=== PATIENT | female | born 1985 | race Caucasian/White ===

== ENCOUNTER 2020-11-22 13:12 | Inpatient (IN) | payer OTHER ==
[~2020-11-22] VITALS: Ht 160 cm; Wt 53.6 kg
[2020-11-22 13:38] LABS: BASOPHILS ABSOLUTE AUTO 0.04 K/mm3 (0.00-0.23); BASOPHILS PERCENT AUTO 1 % (0-2); EOSINOPHILS ABSOLUTE AUTO 0.03 K/mm3 (0.00-0.68); EOSINOPHILS PERCENT AUTO 1 % (0-6); Hematocrit 38.5 % (33.0-51.0); Hemoglobin 13.4 g/dL (11.5-16.0); IMMATURE GRAN ABSOLUTE AUTO 0.01 K/mm3 (0.00-0.10); IMMATURE GRAN PERCENT AUTO 0 % (0-1); LYMPHOCYTES ABSOLUTE AUTO 1.55 K/mm3 (0.84-5.20); LYMPHOCYTES PERCENT AUTO 27 % (21-46); MONOCYTES ABSOLUTE AUTO 0.37 K/mm3 (0.16-1.47); MONOCYTES PERCENT AUTO 6 % (4-13); Mean Corpuscular HGB 39.1 pg (26.0-34.0); Mean Corpuscular HGB Conc 34.8 g/dL (31.5-36.5); Mean Corpuscular Volume 112 fL (80-100); Mean Platelet Volume 9.5 fL (9.1-12.4); NEUTROPHILS ABSOLUTE AUTO 3.75 K/mm3 (1.96-9.15); NEUTROPHILS PERCENT AUTO 65 % (41-73); Platelet Count 174 K/mm3 (150-400); RDW Coefficient Variation 11.9 % (11.7-14.2); RDW Standard Deviation 49.7 fL (35.1-46.3); Red Blood Cell Count 3.43 M/mm3 (3.80-5.20); White Blood Cell Count 5.75 K/mm3 (4.00-11.30)
[2020-11-22 13:49] LABS: Alanine Aminotransfer (ALT/SGP 71 U/L (12-78); Albumin, Blood 3.7 g/dL (3.4-5.0); Alk Phos 157 U/L (50-136); Anion Gap 5 mmol/L (6-16); Aspartate Aminotrans (AST/SGOT 122 U/L (12-37); Bilirubin, Total 0.9 mg/dL (0.1-1.0); Blood Urea Nitrogen 12 mg/dL (8-24); Bun/Creatinine Ratio 23.8 (12.0-20.0); CO2, Blood 27 mmol/L (21-32); Calcium, Blood 10.2 mg/dL (8.5-10.1); Chloride, Blood 104 mmol/L (98-108); Creatinine, Blood 0.51 mg/dL (0.40-1.00); Globulin, Blood 3.6 g/dL (2.2-4.0); Glomerular Filtration Rate >60 (60-); Glucose, Blood 92 mg/dL (70-99); Sodium, Blood 136 mmol/L (136-145); Total Protein, Blood 7.3 g/dL (6.4-8.2)
[2020-11-22 15:05] LABS: Salicylate 4.5 mg/dL (2.8-20.0); Thyroxine (T4) 8.7 ug/dL (4.8-13.9)
[2020-11-22 15:07] LABS: Acetaminophen, Random <2.0 ug/mL (10.0-30.0)
[2020-11-22 17:16] LABS: U Amphetamine Screen Not Detected; U Barbituate Screen Not Detected; U Benzodiazapine Screen DETECTED; U Cannabinoids Screen Not Detected; U Cocaine Screen Not Detected; U Methadone Screen Not Detected; U Methamphetamine Screen Not Detected; U Opiates Screen Not Detected; U Phencyclidine Screen Not Detected
[2020-11-22 17:17] LABS: U Buprenorphine Screen Not Detected; U Oxycodone Screen Not Detected; U Propoxyphene Screen Not Detected
--- NOTE | 2020-11-22 20:00 | NUR ---
ASSUMED CARE NOTE: ASSUMED CARE OF PT AT 1950, RECEVIED REPORT FROM GONZALO ULLOA RN. PT IS ALERT AND ORIENTED ONLY TO SELF. PT IS HAVING AUDITORY AND VISUAL HALLUCINATIONS. PT IS UNABLE TO STATE PLACE, TIME. PT IS FOLLOWING COMMANDS AND IS REDIRECTABLE AT TIMES. PT IS ON RA WITH SPO2 ABOVE 90% NO RESP DISTRESS NOTED. PT IN NSR WITH HR IN THE 80'S. BP STABLE. PT DENIES ANY PAIN/NAUSEA AT THIS TIME. PT CAN BE INCONTIENT AT TIMES/USED BEDPAN. URINE JORGE IN COLOR, PT DENIES BURNING WITH URINATION, ATTENDS IN PLACE. CIWA SCORE 24, MEDICATED PER EMAR. PT DENIES ANY SI, PHYSICAN CALLED TO CLARIFY ORDER, SI ORDER DROPPED. WILL CONTINUE TO MONTIOR PT T/O SHIFT.
[2020-11-23 03:45] LABS: Alanine Aminotransfer (ALT/SGP 58 U/L (12-78); Albumin, Blood 3.5 g/dL (3.4-5.0); Alk Phos 135 U/L (50-136); Anion Gap 7 mmol/L (6-16); Aspartate Aminotrans (AST/SGOT 68 U/L (12-37); Bilirubin, Total 0.9 mg/dL (0.1-1.0); Blood Urea Nitrogen 11 mg/dL (8-24); Bun/Creatinine Ratio 25.1 (12.0-20.0); CO2, Blood 26 mmol/L (21-32); Calcium, Blood 9.2 mg/dL (8.5-10.1); Chloride, Blood 106 mmol/L (98-108); Creatinine, Blood 0.44 mg/dL (0.40-1.00); Globulin, Blood 3.5 g/dL (2.2-4.0); Glomerular Filtration Rate >60 (60-); Glucose, Blood 94 mg/dL (70-99); Potassium, Blood 3.8 mmol/L (3.5-5.5); Sodium, Blood 139 mmol/L (136-145)
--- NOTE | 2020-11-23 04:00 | NUR ---
PT IS ON PRECEDEX AT 0.7MCG/KG/HR. PT CONTINUES TO HAVE AUDITORY AND VISUAL HALLUCINATIONS. BECOMES AGITATED EASILY. WILL BEGIN TO YELL AT "PEOPLE" IN HER ROOM. BED ALARM ON PT WILL ATTEMPT TO GET OUT OF BED W/O ASSISTANCE. PT IS ON REMOTE MONITORING DUE TO HIGH FALL RISK. PT HAS EXTENSIVE BRUSING T/O BODY (DIFFERENT STAGES OF HEALING) PT REPORTS TO FALL FREQUENTLY AT HOME. PT PLACED ON BED GRANDE Q2HRS.
--- NOTE | 2020-11-23 06:09 | NUR ---
SHIFT SUMMARY: SEE PREVIOUS NOTE. PT CONTINUES TO HAVE ADUITORY AND VISUAL HALLUCINATIONS. LAST CI 15, PT MEDICATED PER EMAR. PT ALSO ON PRECEDEX AT 0.7MCG/KG/HR. PT MEDICATED WITH LIBRIUM AND ATIVAN T/O SHIFT. PT IS ABLE TO SWALLOW MEDS W/O DIFFICULTY. PT HAS BEEN IN SR WITH HR BETWEEN 80-90. BP STABLE. PT DENIES ANY NAUSEA AT THIS TIME. PT ABLE TO COMMUNICATE WHEN NEEDEDING TO URINATE, BEDPAN PROVIDED. ATTENDS IN PLACE. BED ALARM ON, PT CONTINUES TO BE ON REMOTE MONITORING DUE TO HIGH FALL RISK. WILL CONTINUE TO MONITOR PT UNTIL REPORT IS GIVEN TO ONCOMING SHIFT.
--- NOTE | 2020-11-23 08:28 | NUR ---
PT A/O TO SELF. NEEDS REMINDING THAT SHE IS IN HOSPITAL AND NOT AT [facility] ANYMORE. ONE DAY OFF ON DATE. MOOD IS LABILE. HAVING HALLUCINATIONS. GETS AGITATED BECAUSE SHE NEEDS TO GO HELP HER MOM. FREQUENTLY REORIENTING BUT PT IS PARANOID AND NOT TRUSTING OF STAFF. HAS BRUISING T/O BODY IN VARIOUS STAGES OF HEALING. HAS GREEN BRUISING TO R CHEEKBONE. PT WANTS TO GET OOB BUT KNOWS THAT SHE IS UNSTEADY ON FEET. ON PRECEDEX GTT WELL. SEE CIWA ASSESSMENT.
--- NOTE | 2020-11-23 18:22 | NUR ---
SUMMARY PT IS STILL HAVING HALLUCINATIONS AT TIMES. MOST OF THE DAY PT THOUGHT SHE WAS AT [facility] AND BECOMES ANGRY WITH STAFF WHEN TOLD SHE IS IN THE HOSPITAL. CONVERSATION IS MAKING MORE SENSE THE DAY GOES ON. HAVE BEEN GIVING ATIVAN AND LIBRIUM FOR CIWA 11-16. ALSO ON PRECEDEX GTT. GAIT IS GETTING MORE STEADY THE DAY GOES ON WELL. HAS BEEN GETTING UP TO BSC WITH ONE PERSON ASSIST. WILL SET OFF THE BED ALARM, DOES NOT USE CALL LIGHT YET. FOLLOWS COMMANDS AND IS REDIRECTABLE.
--- NOTE | 2020-11-23 19:45 | NUR ---
ASSUMED CARE NOTE: ASSUMED CARE OF PT AT 1900, RECEVIED REPORT FROM KEVIN WIN. PT IS ALERT AND ORIENTED ONLY TO SELF. PT IS CONFUSED/AGITATED, UNABLE TO BE REORIENTED. PT IS CRYING ASKING FOR HER FAMILY. CIWA 15, MEDICATED PER EMAR. PT ATTEMPTING TO GET OUT OF BED ON HER OWN, PT HAS UNSTEADY GAIT AND IS AT RISK FOR FALLS. PT CONTINUES TO BE ON BED ALARM AND REMOTE MONITORING. PT CONTINUES TO BE ON PRECEDEX DRIP AT 0.7MCG/KG/HR. PT IS IN SR WITH HR IN THE 80'S, BP STABLE. PT ON RA WITH SPO2 ABOVE 90%, NO RESP DISTRESS NOTED.
--- NOTE | 2020-11-24 02:52 | NUR ---
PT SITTING UP IN BED, ATTEMPTING TO GET UP. DENIES NEED TO USE BED SIDE COMMODE. PT AGITATED, NOT COOPERATING WITH CARE. SITTING EDGE OF BED. CALLED REGARDING PT STATUS. PRECEDEX MAY BE TITRATED TO 1.4MCG/KG/HR.
[2020-11-24 03:39] LABS: BASOPHILS ABSOLUTE AUTO 0.06 K/mm3 (0.00-0.23); BASOPHILS PERCENT AUTO 1 % (0-2); EOSINOPHILS ABSOLUTE AUTO 0.08 K/mm3 (0.00-0.68); EOSINOPHILS PERCENT AUTO 2 % (0-6); Hematocrit 41.1 % (33.0-51.0); Hemoglobin 13.9 g/dL (11.5-16.0); IMMATURE GRAN ABSOLUTE AUTO 0.02 K/mm3 (0.00-0.10); IMMATURE GRAN PERCENT AUTO 0 % (0-1); LYMPHOCYTES ABSOLUTE AUTO 2.34 K/mm3 (0.84-5.20); LYMPHOCYTES PERCENT AUTO 43 % (21-46); MONOCYTES ABSOLUTE AUTO 0.39 K/mm3 (0.16-1.47); MONOCYTES PERCENT AUTO 7 % (4-13); Mean Corpuscular HGB 38.3 pg (26.0-34.0); Mean Corpuscular HGB Conc 33.8 g/dL (31.5-36.5); Mean Corpuscular Volume 113 fL (80-100); Mean Platelet Volume 9.1 fL (9.1-12.4); NEUTROPHILS ABSOLUTE AUTO 2.55 K/mm3 (1.96-9.15); NEUTROPHILS PERCENT AUTO 47 % (41-73); Platelet Count 182 K/mm3 (150-400); RDW Standard Deviation 50.5 fL (35.1-46.3); Red Blood Cell Count 3.63 M/mm3 (3.80-5.20); White Blood Cell Count 5.44 K/mm3 (4.00-11.30)
[2020-11-24 04:03] LABS: Alanine Aminotransfer (ALT/SGP 53 U/L (12-78); Albumin, Blood 3.7 g/dL (3.4-5.0); Alk Phos 135 U/L (50-136); Anion Gap 6 mmol/L (6-16); Aspartate Aminotrans (AST/SGOT 50 U/L (12-37); Bilirubin, Total 1.1 mg/dL (0.1-1.0); Blood Urea Nitrogen 16 mg/dL (8-24); Bun/Creatinine Ratio 28.2 (12.0-20.0); CO2, Blood 26 mmol/L (21-32); Calcium, Blood 9.4 mg/dL (8.5-10.1); Chloride, Blood 106 mmol/L (98-108); Creatinine, Blood 0.57 mg/dL (0.40-1.00); Globulin, Blood 3.6 g/dL (2.2-4.0); Glomerular Filtration Rate >60 (60-); Glucose, Blood 96 mg/dL (70-99); Phosphorus, Blood 5.7 mg/dL (2.5-4.9); Sodium, Blood 138 mmol/L (136-145); Total Protein, Blood 7.3 g/dL (6.4-8.2)
--- NOTE | 2020-11-24 05:17 | NUR ---
SHIFT SUMMARY: PT CONTINUES TO HAVE A CIWA OF 15-20. SHE CONTINUES TO HAVE VISUAL AND AUDITORY HALLUCINATIONS. SHE BECOMES AGITATED EASILY. WILL CALL OUT FOR HER FAMILY. PT IS NOW ON 1.4MCG/KG/HR OF PRECEDEX, ATIVAN AND LIBRIUM GIVEN PER EMAR. PT HAS BEEN ON RA WITH SPO2 ABOVE 90%, NO RESP DISTRESS NOTED. PT IS IN NSR WITH HR IN THE 80-90'S. ORAL CARE PROVIDED NEEDED. BED ALARM ON. PT CONTINUES TO BE ON REMOTE MONITORING. WILL CONTINUE TO MONITOR PT UNTIL REPORT IS GIVEN TO ONCOMING SHIFT.
--- NOTE | 2020-11-24 10:31 | NUR ---
PT SITTING UP IN BED. ORIENTED TO SELF. PT NEEDS FREQUENT REMINDING THAT SHE IS IN THE HOSPITAL AND NOT AT [facility]. HAS BEEN TEARFUL. ON PRECEDEX GTT AND MEDICATING WITH ATIVAN AND LIBRIUM PER CIWA ORDERS. SEE CIWA ASSESSMENT. BED ALARM ARMED FOR SAFETY AND ON REMOTE MONITORING DUE TO FALL RISK. REPORTING OFF TO ROXANE WIN WHO WILL ASSUME CARE.
--- NOTE | 2020-11-24 11:12 | NUR ---
ASSUMED CARE REPORT RECEIVED FROM QUIRINO BROWN. PT STARTED GETTING UP TO EOB WITHOUT ASSISTANCE. ASSISTED HER TO COMMODE TO VOID AND THEN GAVE BEDBATH AND WASHED HER HAIR WHILE SHE WAS UP. PT TEARFUL DURING BATH, BUT DOESN'T WANT TO TALK. PT ASSISTED WITH BATH SHE WAS ABLE TO. BACK LAYING IN BED. BED ALARM ON. CONTINUE TO MONITOR.
--- NOTE | 2020-11-24 13:17 | NUR ---
REASSESSMENT PT HAS BEEN RESTLESS, GETTING UP TO THE EOB FREQUENTLY, SETTING OFF THE BED ALARM. SHE KEEPS SAYING SHE WANTS TO GO HOME TO SEE HER FAMILY. DISCUSSED WITH PT MANY TIMES THE NEED FOR HER TO STAY, THAT IT ISN'T SAFE FOR HER TO GO HOME RIGHT NOW. PT TALKED ON THE PHONE WITH HER AND HE REITERATED THE SAME TO HER. PT SOMETIMES KNOWS SHE IS IN THE HOSPITAL, OTHER TIMES IS CONFUSED. SHE HAS BEEN ASKING FOR PEOPLE THAT AREN'T HERE. SHE DENIES HALLUCINATIONS. SHE IS GETTING IRRITABLE WHEN SHE IS REORIENTED. PRECEDEX STILL INFUSING, PRN ATIVAN AND LIBRIUM BEING GIVEN. SHE IS SR, BP STABLE. ASSISTED PT WITH BATH WHILE UP TO THE COMMODE. CONTINUING TO MONITOR.
--- NOTE | 2020-11-24 13:30 | NUR ---
RESTRAINTS PT HAS BEEN IN THE CHAIR AND IS STILL TRYING TO GET UP, SAYS SHE WANTS TO GO HOME. VERY DIFFICULT TO REDIRECT. PT HAS BEEN UNSTEADY ON HER FEET REQUIRING 1-2 PEOPLE TO GET TO THE COMMODE SAFELY. TALKED WITH DR. ALLEN AND ORDER FOR VEST RESTRAINT RECEIVED. PT NOW SITTING IN CHAIR WITH VEST RESTRAINT IN PLACE.
--- NOTE | 2020-11-24 17:09 | NUR ---
SHIFT SUMMARY PT CONTINUES TO REQUIRE PRECEDEX, ATIVAN AND LIBRIUM TO KEEP HER WITHDRAWAL SYMPTOMS TO A MANAGEABLE LEVEL. BILLY VEST ADDED TODAY TO KEEP PT IN BED SHE WAS REPEATEDLY TRYING TO GET OUT OF BED. HER CIWAA HAS BEEN 15-LOW 20S. LUNGS ARE CLEAR, RA, SR, BP STABLE. SHE GETS UP TO THE COMMODE TO VOID. SHE SPOKE ON THE PHONE WITH HER MOTHER AND THIS AFTERNOON. CONTINUING TO MONITOR.
--- NOTE | 2020-11-24 19:00 | NUR ---
ASSUMED CARE NOTE: ASSUMED CARE OF PT AT 1900, RECEVIED REPORT FROM MARCI WIN. PT IS ALERT AND ORIENTED TO SELF. PT IS SITTING IN BED, YELLING AT STAFF STATING " I SHOULD BE ABLE TO LEAVE FROM YOUR HOUSE I AM GOING TO CALL THE POLICE" PT IS ALSO YELLING AT THE WALL. PT IS HAVING VISUAL AND AUDITORY HALLUCINATIONS. SHE IS UNABLE TO STATE PLACE, TIME, YEAR. PT ON PRECEDEX AT 1.4MCG/KG/HR. PT ATTEMPTING TO REMOVE BILLY, KICKING HER FEET . PT PLACED ON BILAT SWR AND BILLY VEST. PT CIWA 24, MEDICATED WITH ATIVAN PER EMAR. WILL CONTINUE TO MONITOR PT T/O SHIFT
[2020-11-25 04:23] LABS: BASOPHILS ABSOLUTE AUTO 0.06 K/mm3 (0.00-0.23); BASOPHILS PERCENT AUTO 1 % (0-2); EOSINOPHILS ABSOLUTE AUTO 0.06 K/mm3 (0.00-0.68); EOSINOPHILS PERCENT AUTO 1 % (0-6); IMMATURE GRAN ABSOLUTE AUTO 0.02 K/mm3 (0.00-0.10); IMMATURE GRAN PERCENT AUTO 0 % (0-1); LYMPHOCYTES ABSOLUTE AUTO 2.72 K/mm3 (0.84-5.20); LYMPHOCYTES PERCENT AUTO 37 % (21-46); MONOCYTES ABSOLUTE AUTO 0.55 K/mm3 (0.16-1.47); MONOCYTES PERCENT AUTO 8 % (4-13); Mean Corpuscular HGB 38.7 pg (26.0-34.0); Mean Corpuscular Volume 111 fL (80-100); Mean Platelet Volume 9.1 fL (9.1-12.4); NEUTROPHILS PERCENT AUTO 53 % (41-73); Platelet Count 188 K/mm3 (150-400); RDW Coefficient Variation 12.1 % (11.7-14.2); RDW Standard Deviation 49.6 fL (35.1-46.3); Red Blood Cell Count 3.62 M/mm3 (3.80-5.20); White Blood Cell Count 7.31 K/mm3 (4.00-11.30)
[2020-11-25 04:39] LABS: Albumin, Blood 3.9 g/dL (3.4-5.0); Anion Gap 9 mmol/L (6-16); Blood Urea Nitrogen 21 mg/dL (8-24); Bun/Creatinine Ratio 33.5 (12.0-20.0); CO2, Blood 22 mmol/L (21-32); Calcium, Blood 10.1 mg/dL (8.5-10.1); Chloride, Blood 107 mmol/L (98-108); Creatinine, Blood 0.63 mg/dL (0.40-1.00); Glomerular Filtration Rate >60 (60-); Glucose, Blood 94 mg/dL (70-99); Magnesium, Blood 1.9 mg/dL (1.6-2.4); Phosphorus, Blood 5.8 mg/dL (2.5-4.9); Sodium, Blood 138 mmol/L (136-145)
--- NOTE | 2020-11-25 11:13 | NUR ---
AM NOTE... ASSUMED CARE OF PT AT 0700. PT IS A&O TO HERSELF, SHE IS CONFUSED AT TIMES BUT REORIENTABLE AND COOPERATIVE WITH CARE SO FAR THIS SHIFT. PT'S CWIA THIS AM WAS 28, PT MEDICATED PER CWIA ORDERS. PT HAS PRECEDEX RUNNING AT 1.4MCG/KG/HR PER ORDERS. PT IS IN NSR IN THE 80'S-90'S, PT'S BP IS SOFT THIS AM WITH SBP 70'S-90'S. NO EDEMA NOTED ON ASSESSMENT. L/S CLEAR T/O ON RA. BT PRESENT AND HYPOACTIVE, ABD IS SOFT AND NONTENDER TO PALP. PT IS IN BILLY AND BILAT SOFT WRIST RESTRAINTS, THE WRIST RESTRAINTS WERE REMOVED THIS AM TO ALLOW THE PT TO EAT HER BREAKFAST. PT GOT UP TO THE BSC WITH 2P ASSIST AND WAS ABLE TO VOID, PT'S URINE WAS DARK AND VERY CONCENTRATED. DR. ALLEN CALLED AND NOTIFIED OF THE SOFT BPs AND CONCENTRATED URINE, AN ORDER FOR A 500MLS FLUID BOLUS AND NS AT 125MLS/HR TO FOLLOW WERE OBTAINED. CALL LIGHT IN REACH WILL CONTINUE TO MONITOR.
[2020-11-25 13:58] LABS: Source, Urine Clean Catch
[2020-11-25 14:13] LABS: Appearance, Urine Clear (Clear); Bilirubin, Urine Neg (Neg); Blood, Urine 4+ (Neg); Color, Urine Yellow (P-Yellow); Glucose Qualitative, Urine Neg (Neg); Ketones, Urine Neg (Neg); Leukocyte Esterase, Urine Neg (Neg); Nitrite, Urine Neg (Neg); Protein, Urine Neg (Neg); Specific Gravity, Urine 1.015 (1.003-1.022); Urobilinogen, Urine NORM (Normal)
[2020-11-25 15:01] LABS: Bacteria Few /hpf; Squamous Epithelial Cells Mod /hpf (Few)
--- NOTE | 2020-11-25 17:47 | NUR ---
SHIFT SUMMARY... NO ACUTE NEGATIVE CHANGES NOTED SINCE PREVIOUS NOTES. PT'S MOOD HAS BEEN VERY LABILE ONE MINUTE SHE HAS A CALM FLAT AFFECT, THE NEXT SHE IS CRYING OR YELLING/UPSET ATTEMPTING TO PULL OUT LINES AND CLIMB OUT OF BED. PT IS REDIRECTABLE AT TIMES OTHER TIMES SHE IS NOT. PT CONTINUES TO BE ON 1.4MCG/KG/HR OF PRECEDEX, WITH IV ATIVAN AND LIBRIUM PRN. PT HAS BEEN IN A BILLY VEST ALL SHIFT WITH THE USE OF BILATERAL WRIST RESTRAINTS OFF AND ON T/O THE SHIFT. PT HAS BEEN CONT OF URINE THIS SHIFT, PT HAS NOT HAD A BM. A UA WAS SENT TO THE LAB AND IS CURRENTLY AWAITING THE C&S FROM THE LAB. PT'S SOFT BPs IMPROVED AFTER THE FLUID BOLUS AND NS RUNNING AT 125MLS/HR, PT'S BP BECAME HYPERTENSIVE THIS AFTERNOON AND IMPROVED WITH A DOSE OF HYDRALAZINE. NO EVENTS WERE NOTED ON TELE. JANETT OROZCO CALLED THIS RN FOR AN UPDATE AND DISCHARGE PLAN, PER THIS CONVERSATION PRIYANKA IS HOLDING AN INPATIENT BED FOR HER ONCE SHE IS DISCHARGED FROM [facility]. PT'S CWIAs CONTINUE TO BE >20 WITH ACTIVE VISUAL AND AUDITORY HALLUCINATIONS. PT KEEPS THINKING SHE IS AT HER HOUSE AND AT ONE POINT THIS RN ASKED THE PT IF SHE KNEW WHERE SHE WAS THE PT SAID: "I KNOW WHAT YOU WANT ME TO SAY AND I KNOW WHAT I WANT TO SAY" WHEN ASKED WHERE SHE WAS AT SHE RESPONDED "I KNOW I AM AT MY HOUSE BUT I KNOW YOU WANT ME TO SAY THAT I AM AT [facility]." PT HAS BEEN UP IN THE CHAIR FOR SEVERAL HOURS THIS SHIFT, SHE WAS A MOD 2P TRANSFER. CALL LIGHT IN REACH BILLY VEST IS ON, BED ALARM IS ON WILL CONTINUE TO MONITOR UNTIL REPORT IS GIVEN TO ON COMING RN.
--- NOTE | 2020-11-25 19:15 | NUR ---
ASSUMED CARE OF PT, BEDSIDE REPORT RECEIVED. PT IS RESTING QUIETLY RECLINING IN BED AND WATCHING TV. IS ABLE TO STATE THAT SHE IS IN [facility] IN [place] AFTER BEING AT [facility], SHE STATES THE DATE "I KNOW IT'S THURSDAY" AND "NOVEMBER 22, 2021" SHE IS ABLE TO ADD BY 5'S AT THIS TIME, VERY MILD TREMOR IS NOTED, SHE ADMITS TO FINDING LIGHTS AND SOUNDS HARSH HOWEVER DENIES HALLUCINATIONS AT THIS TIME, SHE DOES ADMIT TO SLIGHT HEADACHE AND NAUSEA. SOMEWHAT NORMAL ACTIVITY IS NOTED AT THIS TIME. CIWA SCORED AT 14, WILL MONITOR. PRECEDEX GTT AT 1.4 MCG/KG/HR AT THIS TIME. NS INFUSING AT 125 ML/HR, PER OFFGOING RN, PLAN TO SALINE LOCK WHEN THIS BAG COMPLETE.
[2020-11-26 05:28] LABS: BASOPHILS ABSOLUTE AUTO 0.04 K/mm3 (0.00-0.23); BASOPHILS PERCENT AUTO 1 % (0-2); EOSINOPHILS ABSOLUTE AUTO 0.06 K/mm3 (0.00-0.68); EOSINOPHILS PERCENT AUTO 1 % (0-6); Hemoglobin 12.1 g/dL (11.5-16.0); IMMATURE GRAN ABSOLUTE AUTO 0.02 K/mm3 (0.00-0.10); IMMATURE GRAN PERCENT AUTO 0 % (0-1); LYMPHOCYTES ABSOLUTE AUTO 1.84 K/mm3 (0.84-5.20); LYMPHOCYTES PERCENT AUTO 25 % (21-46); MONOCYTES ABSOLUTE AUTO 0.63 K/mm3 (0.16-1.47); MONOCYTES PERCENT AUTO 9 % (4-13); Mean Corpuscular HGB 38.7 pg (26.0-34.0); Mean Corpuscular HGB Conc 34.6 g/dL (31.5-36.5); Mean Corpuscular Volume 112 fL (80-100); NEUTROPHILS ABSOLUTE AUTO 4.66 K/mm3 (1.96-9.15); NEUTROPHILS PERCENT AUTO 64 % (41-73); Platelet Count 178 K/mm3 (150-400); RDW Coefficient Variation 12.3 % (11.7-14.2); RDW Standard Deviation 50.7 fL (35.1-46.3); Red Blood Cell Count 3.13 M/mm3 (3.80-5.20); White Blood Cell Count 7.25 K/mm3 (4.00-11.30)
[2020-11-26 05:47] LABS: Alanine Aminotransfer (ALT/SGP 35 U/L (12-78); Albumin, Blood 3.3 g/dL (3.4-5.0); Albumin/Globulin Ratio 0.9 (0.8-1.8); Alk Phos 125 U/L (50-136); Anion Gap 6 mmol/L (6-16); Aspartate Aminotrans (AST/SGOT 22 U/L (12-37); Bilirubin, Total 0.9 mg/dL (0.1-1.0); Blood Urea Nitrogen 14 mg/dL (8-24); CO2, Blood 23 mmol/L (21-32); Calcium, Blood 8.6 mg/dL (8.5-10.1); Chloride, Blood 112 mmol/L (98-108); Creatinine, Blood 0.56 mg/dL (0.40-1.00); Globulin, Blood 3.5 g/dL (2.2-4.0); Glomerular Filtration Rate >60 (60-); Glucose, Blood 107 mg/dL (70-99); Magnesium, Blood 1.7 mg/dL (1.6-2.4); Phosphorus, Blood 4.8 mg/dL (2.5-4.9); Potassium, Blood 3.7 mmol/L (3.5-5.5); Sodium, Blood 141 mmol/L (136-145); Total Protein, Blood 6.8 g/dL (6.4-8.2)
--- NOTE | 2020-11-26 05:53 | NUR ---
PT AWAKE MOST OF THIS SHIFT, IS INTERMITTENTLY ABLE TO STATE THAT SHE IS IN THE HOSPITAL IN [place] HOWEVER IS FREQUENTLY NOTED TO SAY THAT YES SHE KNOWS WHERE SHE IS HOWEVER SHE WILL NOT CLARIFY AND ASKS ABOUT HOW MUCH TO RENT A ROOM HERE WELL GETTING SOMEONE THAT CAN DRIVE HER TO THE [employer] FOR CIG[employer]ETTES. SHE HAS DENIED HALLUCINATIONS HOWEVER HAS ALSO COMMENTED ON THE BURR OF HER ROOM MOVING AND STRINGS HANGING OFF OF HER BEDSIDE TABLE. SHE HAS BEEN PLEASANT AND COOPERATIVE THROUGHOUT SHIFT ALTHOUGH SHE DOES CONTINUE TO BE MARKEDLY IMPULSIVE AND LEANING OVER THE SIDE OF THE BED TO REACH FOR ITEMS ON THE FLOOR. WRIST RESTRAINTS HAVE BEEN DC'D AND SHE HAS NOT BEEN NOTED TO BE PULLING ON IVS OR REMOVING MONITORING EQUIPMENT, SHE HAS ASKED FOR PENCILS AND PAPER TO DRAW WITH WELL A LOCAL STORE AT WHICH SHE WOULD BE ABLE TO BUY PAINT. THE CLOSEST THE PATIENT HAS BEEN TO AN ACCURATE DATE WAS AT THE ASSESSMENT AT WHICH TIME SHE STATED THAT THE DATE WAS MONDAY NOVEMBER 22, 2021. CIWA HAS RANGED FROM 3 FOLLOWING ADMINISTRATION OF ATIVAN 4 MG IV AND LIBRIUM 50 MG PO TO 23 JUST PRIOR TO THAT ADMINISTRATION. ATIVAN 2 MG IV WAS ATTEMPTED X 1 WITHOUT ANY NOTEABLE EFFECT POST ADMINISTRATION. PRECEDEX GTT HAS REMAINED AT 1.4 MCG/KG/HR THIS SHIFT AND PT HEART RATE REMAINS 70-90S, PRESSURES REMAIN STABLE. PT CONTINUES TO MAINTAIN SATS ON ROOM AIR WITHOUT INCREASED WORK OF BREATHING.
--- NOTE | 2020-11-26 07:15 | NUR ---
ASSUMED CARE: PT RESTING PURVI ALVARADOY VEST IN PLACE, PRECEDEX GTT AT 1.4 MCG AT THIS TIME. VSS. NO ACUTE NEEDS OR CONCERNS.
--- NOTE | 2020-11-26 09:49 | NUR ---
PT STATED SHE NEEDED TO USE THE RESTROOM. THEN SHE WAS LOOKING FOR HER PHONE AND OTHER SUPPLIES IN HER BAG. OIL CHANGER ASSISTED WITH THIS AND THEN ASSISTED PT INTO RECLINER. PT WAS DISCONNECTED FROM PRECEDEX AT 0907. WAS SITTING IN RECLINER HOLDING HER RESTRAINT STRAPS IN HER HANDS. STATED SHE DID NOT WANT TO BE STRAPPED IN. CAMERA IN PLACE FOR 1:1 OBSERVATION. TAB ALARM ON. PT SITTING IN RECLINER TALKING ON PHONE AT THIS TIME.
[2020-11-26] MEDS ORDERED: Norco 5-325 Ta1 EACH PO (12:21)
[2020-11-26] MEDS ORDERED: ALBU90OI INH (12:21)
[2020-11-26] MEDS ORDERED: PANT40 PO (12:21)
[2020-11-26] MEDS ORDERED: METO50ER PO (12:22)
[2020-11-26] MEDS ORDERED: BUPR75 PO (12:23)
[2020-11-26] MEDS ORDERED: GABA300 PO (12:23)
[2020-11-26] MEDS ORDERED: ONDA4ODT PO (12:24)
[2020-11-26] MEDS ORDERED: OXYC5 PO (12:25)
--- NOTE | 2020-11-26 12:38 | NUR ---
PT GOT UP TO SHOWER AND THEN STANDING AT SINK AND HR SPIKED INTO 160S. HAD PT SIT DOWN AND HR DROPPED INTO 130S. CALL TO PT'S PHARMACY TO GET MED LIST THEN CALLED DR ALLEN TO MAKE HIM AWARE OF PT'S HOME MEDS. DR INSTRUCTED TO GIVE HOME DOSE OF METOPROLOL NOW AND IV X1 DOSE OF METOPROLOL. PT REMAINS IN CHAIR AND AWARE TO REST UNTIL HR SETTLES DOWN. PT AGREEABLE AT THIS TIME.
--- NOTE | 2020-11-26 16:11 | NUR ---
CALL TO [facility] FOR TRENDS IN CIWA AND HR. INSTRUCTS FOR PCU STATUS. ALSO MADE AWARE OF HOME MED LIST. PT AGREEABLE TO STATUS CHANGE. CONVENTION PLANNER AWARE
--- NOTE | 2020-11-26 19:15 | NUR ---
ASSUMED CARE OF PT, BEDSIDE REPORT RECEIVED. PT IS ALERT AND ORIENTED AT THIS TIME, REQUESTS COFFEE AND ICE CREAM. DENIES SENSITIVITY TO LIGHT AND SOUND, DENIES HALLUCINATION, DOES DISCUSS SOME OF HER HALLUCINATIONS FROM PRIOR SHIFTS. DENIES FEELING RESTLESS/AGITATED, DENIES ITCHING/TINGLING. DOES ADMIT TO SLIGHT NAUSEA AND SLIGHT HEADACHE. ASSESSMENT IS OTHERWISE WNL AT THIS TIME. WILL PLAN TO CONTINUE TO MONITOR CIWA SCORES AND MEDICATE NEEDED.
--- NOTE | 2020-11-27 01:13 | NUR ---
CARE ASSUMED ON PCU
--- NOTE | 2020-11-27 03:59 | NUR ---
REASSESSMENT CONTINUE CIWA SCALES Q2 HR NEEDED. NO CHANGES AT THIS TIME. PT AWAKE WATCHING TV ON RA, NO DISTRESS NOTED. CONTINUE ASSESSMENTS AND CARE.
[2020-11-27 04:04] LABS: BASOPHILS ABSOLUTE AUTO 0.05 K/mm3 (0.00-0.23); BASOPHILS PERCENT AUTO 1 % (0-2); EOSINOPHILS ABSOLUTE AUTO 0.04 K/mm3 (0.00-0.68); EOSINOPHILS PERCENT AUTO 1 % (0-6); Hematocrit 39.3 % (33.0-51.0); Hemoglobin 13.3 g/dL (11.5-16.0); IMMATURE GRAN ABSOLUTE AUTO 0.02 K/mm3 (0.00-0.10); IMMATURE GRAN PERCENT AUTO 0 % (0-1); LYMPHOCYTES ABSOLUTE AUTO 2.17 K/mm3 (0.84-5.20); LYMPHOCYTES PERCENT AUTO 39 % (21-46); MONOCYTES ABSOLUTE AUTO 0.64 K/mm3 (0.16-1.47); MONOCYTES PERCENT AUTO 12 % (4-13); Mean Corpuscular HGB 38.3 pg (26.0-34.0); Mean Corpuscular HGB Conc 33.8 g/dL (31.5-36.5); Mean Corpuscular Volume 113 fL (80-100); Mean Platelet Volume 9.3 fL (9.1-12.4); NEUTROPHILS PERCENT AUTO 47 % (41-73); Platelet Count 213 K/mm3 (150-400); RDW Coefficient Variation 12.2 % (11.7-14.2); Red Blood Cell Count 3.47 M/mm3 (3.80-5.20); White Blood Cell Count 5.52 K/mm3 (4.00-11.30)
[2020-11-27 04:20] LABS: Anion Gap 8 mmol/L (6-16); Blood Urea Nitrogen 11 mg/dL (8-24); Bun/Creatinine Ratio 16.6 (12.0-20.0); CO2, Blood 22 mmol/L (21-32); Calcium, Blood 8.9 mg/dL (8.5-10.1); Chloride, Blood 111 mmol/L (98-108); Creatinine, Blood 0.66 mg/dL (0.40-1.00); Glomerular Filtration Rate >60 (60-); Glucose, Blood 95 mg/dL (70-99); Potassium, Blood 3.2 mmol/L (3.5-5.5); Sodium, Blood 141 mmol/L (136-145)
--- NOTE | 2020-11-27 10:57 | NUR ---
UPDATE PT NOW MEDICAL STATUS NO/TELE PER PHYSICIAN. UPDATED PHYSICIAN ON NO IV ACCESS FOR PT. INSTRUCTED TO CHANGE ALL IV MEDICATIONS TO PO ROUTE. SEE EMAR.
--- NOTE | 2020-11-27 19:36 | NUR ---
SHIFT SUMMARY PT ALERT AND ORIENTED X 4. ANXIOUS AT TIMES. CIWA 8-9. SEE EMAR AND EHR. ON CAMERA IN ROOM. NO IV ACCESS, PHYSICIAN INFORMED. MEDICATIONS CHANGED TO PO PER PHYSICIAN. HR STABLE. BP STABLE. NO CP OR PRESSURE REPORTED. WILL CONTINUE TO MONITOR UNTIL REPORT GIVEN TO NIGHTSHIFT RN.
--- NOTE | 2020-11-28 05:02 | NUR ---
SHIFT SUMMARY PT A&O X 4; CIWA 8-11 THIS SHIFT; DENIES CHEST PAIN; VSS; O2 SATS >93 ON RA; INDEPENDENT IN ROOM; PT TOOK A SHOWER THIS SHIFT AND STATED IT HELPED HER RELAX MORE; EXPRESSES ANXIETY REGARDING CROSSROADS AND HOW HER TRANSITION WILL GO; PT TENDS TO WALK OUT OF ROOM TO ASK FOR ITEMS, EDUCATION PROVIDED ON NEEDING TO STAY IN ROOM UNLESS WEARING A MASK; EDUCATED ON FALL PRECAUTIONS; PT SLEPT VERY LITTLE; REFUSES AM LAB DRAW AND VITALS; CALL LIGHT IN REACH; BED IN LOWEST POSITION; WILL CONTINUE TO MONITOR CLOSELY UNTIL HAND OFF TO DAY SHIFT RN.
[2020-11-28 08:19] LABS: BASOPHILS ABSOLUTE AUTO 0.05 K/mm3 (0.00-0.23); BASOPHILS PERCENT AUTO 1 % (0-2); EOSINOPHILS ABSOLUTE AUTO 0.05 K/mm3 (0.00-0.68); EOSINOPHILS PERCENT AUTO 1 % (0-6); Hematocrit 37.9 % (33.0-51.0); Hemoglobin 12.9 g/dL (11.5-16.0); IMMATURE GRAN ABSOLUTE AUTO 0.02 K/mm3 (0.00-0.10); IMMATURE GRAN PERCENT AUTO 0 % (0-1); LYMPHOCYTES ABSOLUTE AUTO 1.85 K/mm3 (0.84-5.20); LYMPHOCYTES PERCENT AUTO 37 % (21-46); MONOCYTES ABSOLUTE AUTO 0.68 K/mm3 (0.16-1.47); MONOCYTES PERCENT AUTO 14 % (4-13); Mean Corpuscular Volume 115 fL (80-100); Mean Platelet Volume 9.3 fL (9.1-12.4); NEUTROPHILS ABSOLUTE AUTO 2.33 K/mm3 (1.96-9.15); NEUTROPHILS PERCENT AUTO 47 % (41-73); Platelet Count 255 K/mm3 (150-400); RDW Coefficient Variation 12.3 % (11.7-14.2); RDW Standard Deviation 51.9 fL (35.1-46.3); Red Blood Cell Count 3.31 M/mm3 (3.80-5.20); White Blood Cell Count 4.98 K/mm3 (4.00-11.30)
[2020-11-28 08:40] LABS: Alanine Aminotransfer (ALT/SGP 53 U/L (12-78); Albumin, Blood 4.1 g/dL (3.4-5.0); Alk Phos 152 U/L (50-136); Anion Gap 5 mmol/L (6-16); Aspartate Aminotrans (AST/SGOT 61 U/L (12-37); Bilirubin, Total 0.7 mg/dL (0.1-1.0); Blood Urea Nitrogen 13 mg/dL (8-24); Bun/Creatinine Ratio 19.4 (12.0-20.0); CO2, Blood 28 mmol/L (21-32); Calcium, Blood 9.3 mg/dL (8.5-10.1); Chloride, Blood 106 mmol/L (98-108); Creatinine, Blood 0.67 mg/dL (0.40-1.00); Glomerular Filtration Rate >60 (60-); Glucose, Blood 92 mg/dL (70-99); Magnesium, Blood 1.9 mg/dL (1.6-2.4); Phosphorus, Blood 5.2 mg/dL (2.5-4.9); Potassium, Blood 4.1 mmol/L (3.5-5.5); Sodium, Blood 139 mmol/L (136-145); Total Protein, Blood 8.1 g/dL (6.4-8.2)
[2020-11-28] MEDS ORDERED: ACET325 PO (10:47)
[2020-11-28] MEDS ORDERED: NICO21TP TOP (10:48)
[2020-11-28] MEDS ORDERED: K-Dur20 MEQ PO (10:49)
[2020-11-28] MEDS ORDERED: B-1100 M1 PO (10:50)
--- NOTE | 2020-11-28 12:22 | NUR ---
Pt was given verbal and written discharge instructions. Denies questions. Pt ambulated out with GED INSTRUCTOR. Discharged back to [facility]. Taxi ride with [employer] pay arrainged.
--- NOTE | 2020-11-28 12:24 | NUR ---
PT DISCHARGED TO [facility] WITH DISCHARGED ORDERS TRANSPORTATION PROVIDED. PT HAS BEEN ALERT AND ORIENTED AT BASELINE CIWA SCORE AT 5. PT HAD ATIVAN 2MG AND LIBRIUM 25MG AT 10A. REPORT/UPDATE GIVEN TO [facility], PT HAS BEEN INDEPENDENT AND AMBULATING IN THE ROOM. NO OTHER ISSUES REPORTED. ALL BELONGINGS SENT WITH PT INCLUDES HOME MEDICATIONS WELL. NEW PRESCRIPTION AND INSTRUCTION DISCLOSED WITH THE PT, ACCOMPANIED BY PCT FOR TRANSPORTATION.
== END 2020-11-28 12:22 | DRG 897 ==
LOC: ER 13:12 → ICUW 18:12 → ICUE 18:12 → PCU 11-27 00:40
PROVIDERS: Emergency Medicine; Family Medicine; Physician Assistant; ADMIT Internal Medicine
DX: F10.239 Alcohol dependence with withdrawal, unspecified (principal); F23 Brief psychotic disorder; I10 Essential (primary) hypertension; Z88.5 Allergy status to narcotic agent; F17.210 Nicotine dependence, cigarettes, uncomplicated
CPT/HCPCS: 36415; 51701; 70450; 80048; 80053; 80069; 81001; 83735; 84100; 84436; 85025; 87086; 94640; 94664; 94760; 96361; 96374; 96375; 99285-25; A9270; C9113; G0480; J0360; J1200; J1630; J1650; J2060; J3411; J3475; J7030; J7040; J7042